=== PATIENT | male | born 2000 | race Caucasian/White ===

== ENCOUNTER → 2021-02-17 | Outpatient (CLI) | payer BC, OTHER ==
[~2021-02-17] MED LIST: GADOTERATE 10 MMOL/20ML SYR ONE
== END | disposition home or self-care (01) ==
LOC: RAD 16:39
PROVIDERS: ATTEND Internal Medicine Hematology & Oncology
DX: C81.94 Hodgkin lymphoma, unspecified, lymph nodes of axilla and upper limb (principal)
CPT/HCPCS: 70553; A9575